=== PATIENT | male | born 1950 | race Hispanic/Latino ===

== ENCOUNTER 2021-04-19 10:25 | Outpatient (CLI) | payer OTHER ==
--- NOTE | 2021-04-19 13:39 | Cat Scan Report ---
CT CHEST WITHOUT CONTRAST INDICATION / CLINICAL INFORMATION: Nicotine dependant; pulmonary nodule. TECHNIQUE: Axial CT images were obtained through the chest without contrast. All CT scans at this [facility] ation are performed using CT dose reduction for ALARA by means of automated exposure control. COMPARISON: None available. FINDINGS: HEART: No significant abnormality. CORONARY ARTERY CALCIFICATION: Mild. THORACIC AORTA: No significant abnormality. MEDIASTINUM / APRIL: No significant abnormality. PLEURA: No pleural effusion. No pneumothorax. LUNGS: No mass or dense infiltrate. Scattered areas of emphysema and mild peripheral interstitial dis ease. ADDITIONAL FINDINGS: None. UPPER ABDOMEN: No significant abnormality. SKELETAL SYSTEM: No significant abnormality. IMPRESSION: 1. No dominant mass or infiltrate. 2. Scattered areas of mild emphysema and peripheral interstitial disease. Signer Name: Ollie Jauregui MD Signed: 04/19/2021 1:34 PM Workstation Name: [id number]
== END 2021-04-19 10:26 | disposition home or self-care (01) ==
LOC: CT 10:25
DX: J43.9 Emphysema, unspecified (principal); I25.10 Atherosclerotic heart disease of native coronary artery without angina pectoris; F17.210 Nicotine dependence, cigarettes, uncomplicated
CPT/HCPCS: 71250